=== PATIENT | female | born 1955 | race Caucasian/White ===

== ENCOUNTER 2019-01-16 10:45 | Emergency (ER) | payer OTHER, BC ==
[2019-01-16] MEDS: NAPROXEN 500 MG TAB PO (13:29)
== END 2019-01-16 13:15 | disposition home or self-care (01) ==
LOC: FTE 10:45
DX: S99.921A Unspecified injury of right foot, initial encounter (principal); F17.210 Nicotine dependence, cigarettes, uncomplicated; W20.8XXA Other cause of strike by thrown, projected or falling object, initial encounter; Y92.9 Unspecified place or not applicable
CPT/HCPCS: 73630; 99283-25